=== PATIENT | male | born 1955 | race Caucasian/White ===

== ENCOUNTER 2018-03-24 21:22 | Inpatient (IN) ==
[2018-03-24] MEDS ORDERED: Diphtheria/Tetanus/Pertussis Vaccine Inj 0.5 ML Syringe IM ONE (21:26)
[2018-03-24] MEDS ORDERED: fentaNYL Citrate Inj 100 MCG/2 ML Ampul ONE (21:27)
[2018-03-24 21:59] LABS: Baso % (Auto) 0.3 % (0.0-2.0); Eos # (Auto) 0.2 th/mm3 (0.0-0.4); Eos % (Auto) 1.6 % (0.0-4.0); Hematocrit 48.4 % (39.0-51.0); Hemoglobin 16.6 gm/dL (13.0-17.0); Lymph # (Auto) 3.8 th/mm3 (1.0-4.8); Lymph % (Auto) 39.2 % (9.0-44.0); Mean Corpuscular HGB Conc 34.3 % (32.0-36.0); Mean Corpuscular Hemoglobin 29.6 pg (27.0-34.0); Mean Corpuscular Volume 86.3 fL (80.0-100.0); Mean Platelet Volume 9.7 fL (7.0-11.0); Mono # (Auto) 0.6 th/mm3 (0.0-0.9); Neut # (Auto) 5.2 th/mm3 (1.8-7.7); Neut % (Auto) 52.9 % (16.0-70.0); Platelet Count 223 th/mm3 (150-450); Red Blood Count 5.61 mil/mm3 (4.50-5.90); Red Cell Distribution Width 13.1 % (11.6-17.2); White Blood Count 9.8 th/mm3 (4.0-11.0)
[2018-03-24 22:10] LABS: Activated Partial Thrombo Time 25.4 sec (24.3-30.1); Prothrombin Time 9.8 sec (9.8-11.6)
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
[2018-03-24] MEDS ORDERED: Acetaminophen 325 MG Tablet PO PRN (22:56)
[2018-03-24] MEDS ORDERED: Morphine Sulfate Inj 2 MG/ML Vial IV.PUSH ONE (23:03)
[2018-03-24] MEDS ORDERED: Labetalol HCl Inj 100 MG/20 ML Vial IV.PUSH ONE (23:03)
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
[2018-03-24] MEDS ORDERED: Dextrose 50% in Water 50 ML Vial IV.PUSH PRN (23:15)
[2018-03-25] MEDS ORDERED: Chlorhexidine Gluconate 2% 1 Pack (2 Cloths) TOPICAL PRN (04:00)
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
[2018-03-25] MEDS: Chlorhexidine Gluconate 2% 1 Pack (2 Cloths) TOPICAL SCH (08:06)
[2018-03-25] MEDS: Enoxaparin Inj 30 MG/0.3 ML Syringe SQ SCH ×3 (08:06→20:39)
[2018-03-25] MEDS: Lisinopril 10 MG Tablet PO SCH (09:06)
[2018-03-25] MEDS: Famotidine 20 MG Tablet PO SCH ×2 (09:06→20:39)
[2018-03-25] MEDS: diazePAM 2 MG Tablet PO SCH ×2 (09:07→20:39)
[2018-03-25] MEDS: Docusate Sodium 100 MG Capsule PO SCH ×2 (09:08→20:39)
[2018-03-25] MEDS: Lidocaine 5% Patch T-DERMAL SCH (09:08)
[2018-03-25] MEDS: Insulin NovoLIN Regular Correctional Sugar Inj SQ SCH ×4 (09:08→21:54)
[2018-03-25] MEDS: Ketorolac Inj 30 MG/ML (IVP) Vial IV.PUSH SCH ×3 (11:03→21:55)
[2018-03-25] MEDS: Morphine Inj 4 MG/ML Vial IV.PUSH PRN (13:48)
[2018-03-26 03:56] LABS: Baso % (Auto) 0.5 % (0.0-2.0); Eos # (Auto) 0.1 th/mm3 (0.0-0.4); Eos % (Auto) 1.3 % (0.0-4.0); Hematocrit 42.1 % (39.0-51.0); Hemoglobin 14.1 gm/dL (13.0-17.0); Lymph # (Auto) 2.6 th/mm3 (1.0-4.8); Lymph % (Auto) 31.9 % (9.0-44.0); Mean Corpuscular HGB Conc 33.6 % (32.0-36.0); Mean Corpuscular Hemoglobin 29.9 pg (27.0-34.0); Mean Corpuscular Volume 89.2 fL (80.0-100.0); Mean Platelet Volume 9.5 fL (7.0-11.0); Mono # (Auto) 0.7 th/mm3 (0.0-0.9); Mono % (Auto) 8.6 % (0.0-8.0); Neut # (Auto) 4.6 th/mm3 (1.8-7.7); Neut % (Auto) 57.7 % (16.0-70.0); Platelet Count 177 th/mm3 (150-450); Red Blood Count 4.72 mil/mm3 (4.50-5.90)
[2018-03-26 04:12] LABS: Alanine Aminotransferase 22 U/L (12-78); Albumin 3.5 g/dL (3.4-5.0); Anion Gap 7 meq/L (5-15); Aspartate Aminotransferase 12 U/L (15-37); Blood Urea Nitrogen 27 mg/dL (7-18); Calcium 8.9 mg/dL (8.5-10.1); Carbon Dioxide 28.5 meq/L (21.0-32.0); Chloride 100 meq/L (98-107); Glomerular Filtration Rate 43 mL/min (>89); Glucose,Random 174 mg/dL (74-106); Potassium 4.1 meq/L (3.5-5.1); Sodium 135 meq/L (136-145)
[2018-03-26 04:14] LABS: Alkaline Phosphatase 47 U/L (45-117); Total Protein 6.8 g/dL (6.4-8.2)
[2018-03-26] MEDS: Chlorhexidine Gluconate 2% 1 Pack (2 Cloths) TOPICAL SCH (05:06)
[2018-03-26] MEDS: Ketorolac Inj 30 MG/ML (IVP) Vial IV.PUSH SCH ×4 (05:29→21:00)
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
[2018-03-26] MEDS: Insulin NovoLIN Regular Correctional Sugar Inj SQ SCH ×4 (09:17→20:43)
[2018-03-26] MEDS: diazePAM 2 MG Tablet PO SCH (09:21)
[2018-03-26] MEDS: Docusate Sodium 100 MG Capsule PO SCH ×2 (09:22→20:41)
[2018-03-26] MEDS: Lisinopril 10 MG Tablet PO SCH (09:22)
[2018-03-26] MEDS: Famotidine 20 MG Tablet PO SCH ×2 (09:22→20:40)
[2018-03-26] MEDS: Enoxaparin Inj 30 MG/0.3 ML Syringe SQ SCH ×2 (09:22→20:39)
[2018-03-26] MEDS: Lidocaine 5% Patch T-DERMAL SCH (09:22)
[2018-03-26] MEDS: Sod Chloride 0.9% Inj 1,000 ML IV.CONT SCH (09:53)
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
[2018-03-26] MEDS: Morphine Inj 4 MG/ML Vial IV.PUSH PRN (21:51)
[2018-03-27] MEDS: diazePAM 2 MG Tablet PO SCH ×2 (04:01→08:56)
[2018-03-27] MEDS: Ketorolac Inj 30 MG/ML (IVP) Vial IV.PUSH SCH ×2 (04:02→09:00)
[2018-03-27] MEDS: Chlorhexidine Gluconate 2% 1 Pack (2 Cloths) TOPICAL SCH (04:08)
[2018-03-27 06:01] LABS: Baso % (Auto) 0.2 % (0.0-2.0); Eos # (Auto) 0.1 th/mm3 (0.0-0.4); Eos % (Auto) 1.1 % (0.0-4.0); Hematocrit 36.3 % (39.0-51.0); Hemoglobin 12.5 gm/dL (13.0-17.0); Lymph # (Auto) 1.5 th/mm3 (1.0-4.8); Lymph % (Auto) 17.7 % (9.0-44.0); Mean Corpuscular HGB Conc 34.5 % (32.0-36.0); Mean Corpuscular Hemoglobin 30.1 pg (27.0-34.0); Mean Corpuscular Volume 87.3 fL (80.0-100.0); Mean Platelet Volume 9.4 fL (7.0-11.0); Mono # (Auto) 0.9 th/mm3 (0.0-0.9); Mono % (Auto) 10.2 % (0.0-8.0); Neut # (Auto) 5.9 th/mm3 (1.8-7.7); Neut % (Auto) 70.8 % (16.0-70.0); Platelet Count 179 th/mm3 (150-450); Red Blood Count 4.16 mil/mm3 (4.50-5.90); Red Cell Distribution Width 12.6 % (11.6-17.2); White Blood Count 8.3 th/mm3 (4.0-11.0)
[2018-03-27 06:31] LABS: Alanine Aminotransferase 18 U/L (12-78); Alkaline Phosphatase 44 U/L (45-117); Total Protein 6.5 g/dL (6.4-8.2)
[2018-03-27 06:37] LABS: Albumin 3.2 g/dL (3.4-5.0); Anion Gap 10 meq/L (5-15); Aspartate Aminotransferase 12 U/L (15-37); Blood Urea Nitrogen 29 mg/dL (7-18); Carbon Dioxide 26.1 meq/L (21.0-32.0); Chloride 97 meq/L (98-107); Glomerular Filtration Rate 47 mL/min (>89); Glucose,Random 195 mg/dL (74-106); Potassium 4.3 meq/L (3.5-5.1); Sodium 133 meq/L (136-145)
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
[2018-03-27] MEDS: Insulin NovoLIN Regular Correctional Sugar Inj SQ SCH ×2 (08:53→13:13)
[2018-03-27] MEDS: Lidocaine 5% Patch T-DERMAL SCH (08:53)
[2018-03-27] MEDS: Docusate Sodium 100 MG Capsule PO SCH (08:54)
[2018-03-27] MEDS: Famotidine 20 MG Tablet PO SCH (08:55)
[2018-03-27] MEDS: Lisinopril 10 MG Tablet PO SCH (08:55)
[2018-03-27] MEDS: Enoxaparin Inj 30 MG/0.3 ML Syringe SQ SCH (08:56)
[2018-03-27 09:37] VITALS: RESP 17
[2018-03-27] MEDS: Sod Chloride 0.9% Inj 1,000 ML IV.CONT SCH (11:29)
[2018-03-27 12:31] VITALS: BP 161/74; PULSE 105; TEMP 97.7; O2SAT 92
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
== END 2018-03-27 13:40 | disposition home or self-care (01) ==
LOC: NEPI 21:22 → NEDA 22:56 → EDBD 22:56 → N03 23:30 → N07 03-26 18:11
PROVIDERS: ADMIT Surgery; ATTEND Surgery